=== PATIENT | female | born 1955 | race Caucasian/White ===

== ENCOUNTER → 2020-08-15 | Outpatient (REF) | payer MEDICARE, MEDICAID ==
[~2020-08-15] MED LIST: ANEX7.5T PO; ASPI81CH PO
== END ==
LOC: M LAB REF 14:18
PROVIDERS: ATTEND Otolaryngology
DX: D11.0 Benign neoplasm of parotid gland (principal)

== ENCOUNTER → 2020-09-17 | Outpatient (CLI) | payer MEDICARE, MEDICAID ==
[~2020-09-17] MED LIST changes: +CALC-190 PO; +EQL50TAB2 PO; +LETR2.5T2 PO; +LISI-898 PO; +LOPE2TAB12 PO; +VERZ100T PO; +VITA-199 PO
== END ==
LOC: M LABSMTC 11:33
PROVIDERS: ATTEND Otolaryngology
DX: Z01.812 Encounter for preprocedural laboratory examination (principal); Z11.52 Encounter for screening for COVID-19

== ENCOUNTER 2020-09-22 09:31 | Day surgery (SDC) | payer MEDICARE, MEDICAID ==
[~2020-09-22] VITALS: Ht 160 cm; Wt 70.0 kg
[~2020-09-22 09:31] MED LIST changes: +LR 1,000 ML IV ONE
[2020-09-22] MEDS ORDERED: LIDOCAINE W/EPINEPHRINE 1% 20ML VIAL As Ordered ONE (10:31)
[2020-09-22] MEDS ORDERED: BACITRACIN OINTMENT 30GM TUBE As Ordered ONE (10:31)
[2020-09-22] MEDS ORDERED: SCOPOLAMINE 1MG TRANSDERMAL PATCH TOP ONE (10:40)
[2020-09-22] MEDS ORDERED: MIDAZOLAM INJ 2MG/2ML VIAL (J2250 PER 1MG) As Ordered ONE (10:48)
[2020-09-22] MEDS ORDERED: fentaNYL 100 MCG/2 ML INJECTION (J3010) As Ordered ONE (10:48)
--- NOTE | 2020-09-22 11:35 | ECGEPIP ---
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 No prior ECG available for comparison at the time of interpretation. Electronically Signed on 09-22-2020 11:35:23 EDT by Chris Jaramillo
[2020-09-22] MEDS ORDERED: PHENYLEPHRINE 10MG/ML 1ML VIAL (J2370 PER 1) As Ordered ONE (12:02)
[2020-09-22] MEDS ORDERED: ONDANSETRON 4MG/2ML VIAL As Ordered ONE (12:41)
[2020-09-22] MEDS ORDERED: LIDOCAINE 2% 100MG/5ML SDV (FOR ANES.) As Ordered ONE (12:41)
[2020-09-22] MEDS ORDERED: ROCURONIUM BROMIDE 50 MG/5 ML VIAL As Ordered ONE (12:41)
[2020-09-22] MEDS ORDERED: SUGAMMADEX SODIUM 500 MG/5 ML VIAL (BRIDION) As Ordered ONE (12:41)
[2020-09-22] MEDS ORDERED: propofoL 200 MG/20 ML VIAL As Ordered ONE (12:41)
[2020-09-22] MEDS ORDERED: KETOROLAC 60MG 2ML VIAL As Ordered ONE (12:42)
[2020-09-22] MEDS ORDERED: dexameTHASONE 4 MG/ML 1ML VIAL (J1100 PER 1MG) As Ordered ONE (12:42)
[2020-09-22] MEDS ORDERED: ACETAMINOPHEN 1000MG 100ML IV BTL (OFIRMEV) (J0131 PER 10MG) As Ordered ONE (12:42)
[2020-09-22] MEDS ORDERED: ONDANSETRON 4MG/2ML VIAL IV PRN (14:15)
[2020-09-22] MEDS ORDERED: HYDROMORPHONE HCL 0.5 MG/ 0.5 ML SYRINGE (J1170 PER 1) IV PRN (14:15)
[2020-09-22] MEDS ORDERED: METOCLOPRAMIDE INJ 10MG/2ML VIAL (J2765 PER 1) IV PRN (14:15)
[2020-09-22] MEDS ORDERED: LR 1,000 ML IV SCH ×2 (14:15→14:20)
[2020-09-22] MEDS ORDERED: fentaNYL 100 MCG/2 ML INJECTION (J3010) IV PRN (14:15)
[2020-09-22] MEDS ORDERED: oxyCODONE 5MG TAB PO PRN (14:15)
[2020-09-22] MEDS ORDERED: ACETAMINOPH W/CODEINE #3 TAB UD PO PRN (14:20)
[2020-09-22 15:55] VITALS: BP 113/55
--- NOTE | 2020-09-22 16:56 | RO ---
OPERATIVE NOTE DATE OF OPERATION: 09/22/2020 PREOPERATIVE DIAGNOSIS: Right parotid tumor. POSTOPERATIVE DIAGNOSIS: Right parotid tumor. OPERATIVE PROCEDURE: Right superior parotidectomy. SURGEON: Paolo Tolliver M.D. HIDE STRETCHER HAND: ARAM Carroll, who helped with some of the cutting, retraction, and suturing. ANESTHESIA: General. ESTIMATED BLOOD LOSS: Less than 20 mL. DESCRIPTION OF PROCEDURE: Under general anesthesia with the patient intubated, the patient was draped in the usual manner. I did use the nerve monitoring system during the procedure. The facial nerve was identified and I followed its branches until they were out of the dissection. I infiltrated the area of the face with Lidocaine with epinephrine. I divided the skin and subcutaneous tissues. I elevated the tissues off the parotid gland. I dissected between the ear canal and the carotid. I then dissected inferiorly in the neck down through identifying the great auricular nerve. I dissected this area down to the posterior belly of digastric. I then dissected down. There some vessels, which I cauterized with bipolar cautery. I then dissected down, identified the facial nerve, and then followed its branches. I dissected then the branches free using a bipolar cautery and then blunt and sharp dissection. When I followed the nerve and I was sure the nerve was out of the way, then I resected the tumor with normal parotid gland surrounding it. The patient tolerated the procedure well. I irrigated the area to make sure there was no bleeding. Any areas were cauterized with bipolar cautery. I then put a 0.25 Anika drain in the wound and then sutured the wound closed with Mersiline and 5-0 nylon. The patient tolerated the procedure well, she was extubated, and transferred to the recovery room in excellent condition.
== END 2020-09-22 16:23 | disposition home or self-care (01) ==
LOC: M SDC 09:31
PROVIDERS: ATTEND Otolaryngology
DX: C07 Malignant neoplasm of parotid gland (principal); I10 Essential (primary) hypertension; C50.912 Malignant neoplasm of unspecified site of left female breast; C79.51 Secondary malignant neoplasm of bone; Z90.12 Acquired absence of left breast and nipple; M19.90 Unspecified osteoarthritis, unspecified site; Z88.5 Allergy status to narcotic agent; Z79.899 Other long term (current) drug therapy; Z96.643 Presence of artificial hip joint, bilateral
CPT/HCPCS: 42415; 88305; 93005; J0131; J1100; J1885; J2250; J2370; J2405; J3010

== ENCOUNTER → 2023-01-23 | Outpatient (CLI) | payer MEDICARE, MEDICAID ==
[~2023-01-23] MED LIST changes: -LISI-898 PO; +LISI5TAB11 PO; -LR 1,000 ML IV ONE; +PROHANCE 279.3MG/ML 15ML VIAL As Ordered ONE
== END ==
LOC: M RAD 15:41
PROVIDERS: ATTEND Physician Assistant
DX: R93.7 Abnormal findings on diagnostic imaging of other parts of musculoskeletal system (principal)
CPT/HCPCS: 70543; A9576

== ENCOUNTER 2023-07-04 11:08 | Day surgery (SDC) | payer MEDICARE, MEDICAID ==
[~2023-07-04] VITALS: Ht 160 cm; Wt 71.0 kg
[~2023-07-04 11:08] MED LIST changes: -PROHANCE 279.3MG/ML 15ML VIAL As Ordered ONE
[2023-07-04] MEDS ORDERED: MIDAZOLAM INJ 2MG/2ML VIAL As Ordered ONE (11:13)
[2023-07-04] MEDS: LIDOCAINE 3.5 % 1ML OPHTH TOPICAL GEL OU ONE (11:42)
[2023-07-04] MEDS: OFLOXACIN 0.3 % (OCUFLOX) OPTH SOL 5ML OS ONE (11:42)
[2023-07-04] MEDS: TROPICAMIDE 1% OPHTH SOLN 15ML OS SCH (11:43)
[2023-07-04] MEDS: PHENYLEPHRINE 2.5% OPHTH SOL 2ML OS SCH (11:43)
[2023-07-04] MEDS: CYCLOPENTOLATE 1% OPHTH SOLN 2ML BTL OS SCH (11:43)
[2023-07-04] MEDS: PHENYLEPHRINE 10% OPHTH SOL 5ML OS PRN (11:57)
[2023-07-04] MEDS: BSS IRRIG/VANCO(10MG)/TOBRA(5MG)/EPINEPH(1:1000-0.5CC)500ML BAG-ORONLY As Ordered ONE (12:22)
[2023-07-04] MEDS: LIDOCAINE 1% SDV 5ML VIAL As Ordered ONE (12:22)
[2023-07-04] MEDS: CEFUROXIME 1MG/0.1ML INTRACAMERAL INJ As Ordered ONE (12:25)
[2023-07-04 12:36] VITALS: BP 114/64; TEMP 97.4; O2SAT 99
== END 2023-07-04 13:10 | disposition home or self-care (01) ==
LOC: M SDC 11:08
PROVIDERS: ATTEND Ophthalmology
DX: H25.12 Age-related nuclear cataract, left eye (principal); I10 Essential (primary) hypertension; Z85.3 Personal history of malignant neoplasm of breast; Z85.830 Personal history of malignant neoplasm of bone; Z92.21 Personal history of antineoplastic chemotherapy; Z92.3 Personal history of irradiation; Z79.899 Other long term (current) drug therapy; Z88.5 Allergy status to narcotic agent; Z88.1 Allergy status to other antibiotic agents
CPT/HCPCS: 66984; J0697; J2250; V2632